=== PATIENT | male | born 2000 | race Caucasian/White ===

== ENCOUNTER 2021-07-26 00:45 | Emergency (ER) | payer OTHER | END 2021-07-26 01:54 | disposition home or self-care (01) | LOC: FER 00:45 | DX: T26.62XA Corrosion of cornea and conjunctival sac, left eye, initial encounter (principal); Z88.8 Allergy status to other drugs, medicaments and biological substances; Y92.009 Unspecified place in unspecified non-institutional (private) residence as the place of occurrence of the external cause | CPT/HCPCS: 99283; J7030 ==